=== PATIENT | male | born 1945 | race Caucasian/White ===

== ENCOUNTER 2018-11-02 10:52 | Emergency (ER) | payer BC, MEDICARE ==
--- NOTE | 2018-11-02 11:04 | ED ---
Respiratory - HPI Summary HPI Summary: This patient is a 73 year old M brought in by ambulance from to ED with a chief complaint of upper respiratory sx since 6 days ago. The patient was sent here from to r/o STEMI because of ST changes seen on an EKG. Dr. Seay saw the patient in the ER at 1054. The patient rates the pain 0/10 in severity. Symptoms aggravated by nothing. Symptoms alleviated by nothing. Patient reports rhinorrhea, productive cough with light jaramillo sputum, SOB, non-radiating heart burn that worsens after PO and after having ETOH, unsteady gait, and intermittent diarrhea (unchanged from baseline). Patient denies CP, edema, N/V, and any numbness. PMHx of COPD. Patient has not had his flu shot this year. He has been taking 60mg of prednisone and 1500mg a day of amoxicillin for the last 6 days. He denies long distance travel in the last 3 months. - History of Current Complaint Stated Complaint: CHEST PAIN PER EMS Hx Obtained From: Patient, EMS Onset/Duration: Sudden Onset, Lasting Days - since 6 days ago, Still Present Timing: Constant Current Severity: None Pain Intensity: 0 Character: Cough (Productive) Sputum Color: Jaramillo - light jaramillo Aggravating Factor(s): Nothing Alleviating Factor(s): Nothing Associated Signs and Symptoms: SOB - Allergy/Home Medications Allergies/Adverse Reactions: Allergies Allergy/AdvReac Type Severity Reaction Status Date / Time No Known Allergies Allergy Verified 11/02/18 09:12 PMH/Surg Hx/FS Hx/Imm Hx Endocrine/Hematology History: Denies: Hx Diabetes, Hx Thyroid Disease Cardiovascular History: Reports: Hx Hypertension Respiratory History: Reports: Hx Chronic Obstructive Pulmonary Disease (COPD) Denies: Hx Asthma GI History: Denies: Hx Ulcer - Cancer History Cancer Type, Location and Year: prostate - Surgical History Surgery Procedure, Year, and Place: L Hand x3. R Hand x2. brain coil [facility] Infectious Disease History: No Infectious Disease History: Denies: Hx Hepatitis, Hx Human Immunodeficiency Virus (HIV), Traveled Outside the in Last 30 Days - Family History Known Family History: Positive: Respiratory Disease - Social History Alcohol Use: Occasionally Alcohol Amount: 1 beer, 1 shot, 2 glasses of wine Substance Use Type: Reports: None Hx Tobacco Use: Yes Smoking Status (MU): Light Every Day Tobacco Smoker Amount Used/How Often: 1/2 PPD Review of Systems Positive: Other - rhinorrhea Negative: Chest Pain Positive: Shortness Of Breath, Cough - productive with light jaramillo phlegm Positive: Diarrhea - intermittent diarrhea (unchanged from baseline), Other - non-radiating heart burn that worsens after PO . Negative: Vomiting, Nausea Positive: Other - unsteady gait. Negative: Edema Negative: Numbness All Other Systems Reviewed And Are Negative: Yes Physical Exam - Summary Physical Exam Summary: Constitutional: Well-developed, Well-nourished, Alert. (-) Distressed Skin: Warm, Dry HENT: Normocephalic; Atraumatic Eyes: Conjunctiva normal Neck: Musculoskeletal ROM normal neck. (-) JVD, (-) Stridor, (-) Tracheal deviation Cardio: Rhythm regular, rate normal, Heart sounds normal; Intact distal pulses; The pedal pulses are 2+ and symmetric. Radial pulses are 2+ and symmetric. (-) Murmur Pulmonary/Chest wall: Effort normal. (-) Respiratory distress, (-) Wheezes, (-) Rales, Diminished breath sounds in the posterior lung leach bilaterally Abd: Soft, (-) tenderness, (-) Distension, (-) Guarding, (-) Rebound Musculoskeletal: (-) Edema Lymph: (-) Cervical adenopathy Neuro: Alert, Oriented x3 Psych: Mood and affect Normal Triage Information Reviewed: Yes Vital Signs On Initial Exam: Initial Vitals Temp Pulse Resp BP Pulse Ox 97.6 F 76 20 136/82 98 11/02/18 10:54 11/02/18 10:54 11/02/18 10:54 11/02/18 10:54 11/02/18 10:54 Vital Signs Reviewed: Yes Diagnostics - Vital Signs Vital Signs Temp Pulse Resp BP Pulse Ox 11/02/18 10:54 97.6 F 76 20 136/82 98 - Laboratory Result Diagrams: 11/02/18 11:14 11/02/18 11:14 Lab Statement: Any lab studies that have been ordered have been reviewed, and results considered in the medical decision making process. - CT CTA chest/thorax CT Interpretation Completed By: Radiologist Summary of CT Findings: No definite pulmonary embolus is noted. No evidence of aortic dissection. Right upper lobe consolidation. Left lower lobe calcified granuloma. Dr. Alvarado has reviewed this radiology report. - EKG 1138 Cardiac Rate: Bradycardia - 57 BPM EKG Rhythm: Sinus Bradycardia Summary of EKG Findings: Sinus bradycardia at 57 bpm, normal HI, normal QRS, normal QTc, normal axis, normal ST, normal T-waves, normal EKG. 1056 Cardiac Rate: NL - 72 BPM EKG Rhythm: Sinus Rhythm Summary of EKG Findings: Normal sinus rhythm at 72 bpm, normal HI, normal QRS, normal QTc, R axis deviation, RBBB. Re-Evaluation - Re-Evaluation First Eval Re-Evaluation Time: 12:34 Change: Unchanged Second Eval Re-Evaluation Time: 14:38 Comment: Discussed results with the patient. Third Eval Re-Evaluation Time: 16:11 Change: Improved Comment: Patient ambulated in the ED and his HR increased. The patient is feeling better currently and he was feeling alright while walking. He reports that he was not feeling light-headed while walking. Fourth Eval Re-Evaluation Time: 17:08 Change: Improved Comment: I discussed with him that this heart rate is rapid, but he is declining admission at this time. He states he is feeling better now than he has all week. His O2 sat is good. Given maintence of O2 sat, he will be discharged home. Disposition - Course Assessment/Plan: This patient is a 73 year old M brought in by ambulance from to ED with a chief complaint of upper respiratory sx since 6 days ago. The patient was sent here from to r/o STEMI because of ST changes seen on an EKG. On exam, the patient has diminished breath sounds in the posterior lung leach bilaterally. EKG reveals normal sinus rhythm at 72 bpm, normal HI, normal QRS, normal QTc, R axis deviation, RBBB. CTA chest/thorax reveals no definite pulmonary embolus is noted. No evidence of aortic dissection. Right upper lobe consolidation. Left lower lobe calcified granuloma. In the ED course , the patient was given a duoneb, rocephin, and zithromax. ood work shows no significant abnormalities except for slightly elevated WBC, MCH, MCH, absolute neuts, absolute monos, BUN/creatinine, glucose, and calcium, and decreased absolute lymphs, absolute monos, sodium, and chloride. First troponin is 0.02, and second troponin is 0.03. Influenza A and B tests are negative. Upon re-eval at 1708, the patient states he was feeling worse throughout the week. At this time, his O2 sat is okay. I discussed with him his rapid heartbeat, but he declines admission. Given maintained O2 sat and improvement of symptoms since onset, he will be discharged home with a prescription for Avelox. The diagnosis is community acquired pneumonia. He understands the risk of declining admission. He will return to the ED for any new or worsening symptoms. - Diagnoses Provider Diagnoses: Community acquired pneumonia Discharge - Sign-Out/Discharge Documenting (check all that apply): Patient Departure - Patient will be discharged home. Patient Received Moderate/Deep Sedation with Procedure: No - Discharge Plan Condition: Stable Disposition: HOME Prescriptions: Moxifloxacin HCl [Avelox] 400 mg PO DAILY 9 Days #9 tablet Moxifloxacin HCl [Avelox] 400 mg PO DAILY #9 tablet Patient Education Materials: Community Acquired Pneumonia (ED) Print Language: AZERI Referrals: Ancelmo Slaughter PA [Primary Care Provider] - - Billing Disposition and Condition Condition: STABLE Disposition: Home - Attestation Statements Document Initiated by Bryannaibe: Yes Documenting Scribe: Chandler Avendaño Provider For Whom Skye is Documenting (Include Credential): Dr. Pinky Mckeon MD Scribe Attestation: I, Chandler Avendaño, scribed for Dr. Pinky Mckeon MD on 11/02/18 at 2118. Scribe Documentation Reviewed: Yes Provider Attestation: The documentation as recorded by the Chandler vyas accurately reflects the service I personally performed and the decisions made by me, Dr. Pinky Mckeon MD Status of Scribe Document: Viewed
[2018-11-02 11:32] LABS: Hematocrit 46 % (36-46); Hemoglobin 15.2 g/dL (14.0-18.0); Mean Corpuscular HGB Conc 33 g/dL (31-36); Mean Corpuscular Hemoglobin 33 pg (27-31); Mean Corpuscular Volume 99 fL (80-94); Mean Platelet Volume 8.9 fL (7.4-10.4); Platelet Count 220 10^3/uL (150-450); Red Cell Distribution Width 13 % (10.5-15); White Blood Count 13.7 10^3/uL (3.5-10.8)
[2018-11-02 11:54] LABS: Albumin 3.6 g/dL (3.2-5.2); Albumin/Globulin Ratio 1.1 (1-3); BUN/Creatinine Ratio 21.9 (8-20); Calcium 11.6 mg/dL (8.6-10.3); EGFR African American 92.4 (>60); EGFR Non-African American 76.4 (>60); Globulin 3.2 g/dL (2-4); Potassium 4.6 mmol/L (3.5-5.0); Total Bilirubin 0.5 mg/dL (0.2-1.0); Total Protein 6.8 g/dL (6.4-8.9); Troponin I 0.02 ng/mL (<0.04)
[2018-11-02 12:11] LABS: Influenza A Molecular NEGATIVE (Negative); Influenza B Molecular NEGATIVE (Negative)
[2018-11-02 12:33] LABS: ABS Basophils 0 10^3/ul (0-0.2); ABS Eosinophils 0 10^3/ul (0-0.6); ABS Lymphocytes 0.6 10^3/ul (1.0-4.8); ABS Monocytes 2.2 10^3/ul (0-0.8); ABS Neutrophils 10.8 10^3/ul (1.5-7.7); ABS Nucleated RBC 0 10^3/ul; Eosinophil % 0.2 %; Lymphocyte % 4.3 %; Nucleated Red Blood Cells % 0.3
[2018-11-02] MEDS ORDERED: Albuterol/Ipratropium NEB.SOL* Albuterol 2.5 MG/Ipratropium 0.5 MG 3 ML INH ONE (12:38)
[2018-11-02] MEDS ORDERED: Iohexol 350* (CONTRAST) 500 ML MDV IV ONE (12:48)
[2018-11-02] MEDS ORDERED: ED Azithromycn 500 mg/250 ml 500 MG/250 ML PREMIX.SET IVPB ONE (14:14)
[2018-11-02] MEDS ORDERED: cefTRIAXone(*) 1 GM in NS 0.9% 50 ML* 50 ML IVPB ONE (14:14)
[2018-11-02 17:44] VITALS: BP 106/74
== END 2018-11-02 17:43 | disposition home or self-care (01) ==
LOC: ED 10:52
DX: J18.9 Pneumonia, unspecified organism (principal); R19.7 Diarrhea, unspecified; R26.81 Unsteadiness on feet; R00.1 Bradycardia, unspecified; I45.10 Unspecified right bundle-branch block; I10 Essential (primary) hypertension; J44.9 Chronic obstructive pulmonary disease, unspecified; F17.200 Nicotine dependence, unspecified, uncomplicated
CPT/HCPCS: 36415; 71275; 80053; 83605; 83690; 83735; 83880; 84484; 85025; 93005; 96365; 99284; A9270-GY; J0696; Q9967

== ENCOUNTER 2018-11-10 09:19 | Emergency (ER) | payer MEDICARE ==
[2018-11-10] MEDS ORDERED: methylPREDNISolone 125 MG* 2 ML VIAL IV ONE (09:56)
[2018-11-10] MEDS ORDERED: Benzonatate CAP* 100 MG PO ONE (09:56)
[2018-11-10] MEDS ORDERED: Albuterol/Ipratropium NEB.SOL* Albuterol 2.5 MG/Ipratropium 0.5 MG 3 ML INH ONE ×2 (09:56→12:04)
--- NOTE | 2018-11-10 09:57 | ED ---
Shortness of Breath - HPI Summary HPI Summary: A 73 y/o male presents to [facility] with a chief complaint of shortness of breath since 11/02/18. He reports that he was admitted to [facility] with a diagnosis of pneumonia and left on 11/02/18. He started abx the next day. He reports that he takes two inhalers, albuterol, and has used prednisone and amoxicillin before he was admitted because he was sick for about a week, but his symptoms are worsening. He reports that last night his O2 Sat was in the 70s and claims that his O2 Sat at its highest is around 92. He reports that he has a nebulizer at home but hasnt used it. Dr. Wood is his PCP. At triage he rated his pain as a 0/10 in severity. Movement aggravates his pain, claiming that he gets a cough. He reports that he has SOB all the time. He also reports that he had a brain aneurysm 2 years ago. Vital signs while in room HR: 61 bpm, O2 Sat: 93, BP: 136/82 - History of Current Complaint Chief Complaint: EDShortnessOfBreath Time Seen by Provider: 11/10/18 09:27 Hx Obtained From: Patient Onset/Duration: Sudden Onset Timing: Constant Current Severity: Mild Dyspnea At: Rest Aggrevating Factors: Movement Alleviating Factors: Nothing Associated Signs & Symptoms: Negative - fever - Allergy/Home Medications Allergies/Adverse Reactions: Allergies Allergy/AdvReac Type Severity Reaction Status Date / Time No Known Allergies Allergy Verified 11/10/18 09:24 Home Medications: Home Medications Budesonide/Formote 160/4.5(NF) [Symbicort 160/4.5 (NF)] 1 puff INH BID 11/10/18 [History Confirmed 11/10/18] Finasteride TAB* [Proscar TAB*] 5 mg PO DAILY 11/10/18 [History Confirmed ] PMH/Surg Hx/FS Hx/Imm Hx Endocrine/Hematology History: Denies: Hx Diabetes, Hx Thyroid Disease Cardiovascular History: Reports: Hx Hypertension Respiratory History: Reports: Hx Chronic Obstructive Pulmonary Disease (COPD) Denies: Hx Asthma GI History: Denies: Hx Ulcer - Cancer History Cancer Type, Location and Year: prostate - Surgical History Surgery Procedure, Year, and Place: L Hand x3. R Hand x2. brain coil [facility] Infectious Disease History: No Infectious Disease History: Denies: Hx Hepatitis, Hx Human Immunodeficiency Virus (HIV), Traveled Outside the [place] in Last 30 Days - Family History Known Family History: Positive: Respiratory Disease - Social History Alcohol Use: Daily Alcohol Amount: 1 beer, 1 shot, 2 glasses of wine Substance Use Type: Reports: None Hx Tobacco Use: Yes Smoking Status (MU): Former Smoker Amount Used/How Often: 1/2 PPD Review of Systems Negative: Fever Positive: Shortness Of Breath, Cough - upon movement All Other Systems Reviewed And Are Negative: Yes Physical Exam - Summary Physical Exam Summary: Appearance: The patient is well-nourished in no acute distress and in no acute pain. Skin: The skin is warm and dry and skin color reflects adequate perfusion. HEENT: The head is normocephalic and atraumatic. The pupils are equal and reactive. The conjunctivae are clear and without drainage. Nares are patent and without drainage. Mouth reveals moist mucous membranes and the throat is without erythema and exudate. The external ears are intact. The ear canals are patent and without drainage. The tympanic membranes are intact. Neck: The neck is supple with full range of motion and non-tender. There are no carotid bruits. There is no neck vein distension. Respiratory: Chest is tight. Expiratory wheezes. Cardiovascular: Heart is regular rate and rhythm. There is no murmur or rub auscultated. There is no peripheral edema and pulses are symmetrical and equal. Abdomen: The abdomen is soft and non-tender. There are normal bowel sounds heard in all four quadrants and there is no organomegaly palpated. Musculoskeletal: There is no back tenderness noted. Extremities are non-tender with full range of motion. There is good capillary refill. There is no peripheral edema or calf tenderness elicited. Neurological: Patient is alert and oriented to person, place and time. The patient has symmetrical motor strength in all four extremities. Cranial nerves are grossly intact. Deep tendon reflexes are symmetrical and equal in all four extremities. Psychiatric: The patient has an appropriate affect and does not exhibit any anxiety or depression. Triage Information Reviewed: Yes Vital Signs On Initial Exam: Initial Vitals Temp Pulse Resp BP Pulse Ox 97.9 F 70 24 133/89 94 11/10/18 09:20 11/10/18 09:20 11/10/18 09:20 11/10/18 09:20 11/10/18 09:20 Vital Signs Reviewed: Yes Diagnostics - Vital Signs Vital Signs Temp Pulse Resp BP Pulse Ox 11/10/18 09:33 61 93 11/10/18 09:32 61 136/82 89 11/10/18 09:20 97.9 F 70 24 133/89 94 - Laboratory Result Diagrams: 11/10/18 10:33 11/10/18 10:33 Lab Statement: Any lab studies that have been ordered have been reviewed, and results considered in the medical decision making process. - Radiology CXR Radiology Interpretation Completed By: Radiologist Summary of Radiographic Findings: RIGHT UPPER LOBE INFILTRATE, UNCHANGED. ED physician has reviewed this imaging report. - EKG 10:02 Cardiac Rate: NL - 59 bpm EKG Rhythm: Sinus Rhythm Summary of EKG Findings: Normal sinus rhythm at 59 bpm, RBBB Re-Evaluation - Re-Evaluation First Eval Re-Evaluation Time: 11:44 Change: Unchanged Comment: O2 Sat 83 when walking Second Eval Re-Evaluation Time: 12:32 Change: Unchanged Comment: Patient requesting discharge instead of admission Course/Dx - Course Course Of Treatment: Mr. Ibanez resents to the emergency department complaining of continued shortness of breath ever since being hospitalized for pneumonia a couple weeks ago. He was discharged on Levaquin and has since finished that. He has a couple of inhalers at home as well as a nebulizer machine with nebulizer solution that's probably a couple years old. He has not used his nebulizer. He has been on home oxygen in the past he states but no longer has that. He is concerned because he has a personal pulse ox detector that has been reading low and he is generally feeling short of breath. Exertion worsens it and that he hasn't been sleeping well. He was nontoxic in appearance here but his pulse ox was marginal at rest in the [place] [facility] on room air. He was kept on oxygen on the monitor while he received some nebulizers and some Solu- Medrol. He felt improved and I tried to ambulate him but his pulse ox dropped to 83% and he felt very short of breath. He was tight with some wheezing but was not using accessory muscles and had no retractions. I recommended admission to the hospital on the steroids have a chance to kick and we can arrange oxygen for him at home and update his nebulizer machine. He is adamant about not staying in the hospital. He states that he's been feeling this way for 2 weeks and he can feel this way little longer that what he really wants is to have home oxygen. I think that's a good idea but encouraged him to stay as I think he'll feel better a lot better tomorrow after the steroids kick in. He understands my concerns and indicates that he will return if he feels worse and is complaining [facility]. - Diagnoses Provider Diagnoses: COPD exacerbation - Physician Notifications Discussed Care of Patient With: Meera Cheatham Time Discussed With Above Provider: 12:09 Instructed by Provider To: Other - Jay Griffin will see the patient in the ED Discharge - Sign-Out/Discharge Documenting (check all that apply): Patient Departure - DC Patient Received Moderate/Deep Sedation with Procedure: No - Discharge Plan Condition: Stable Disposition: HOME Prescriptions: Benzonatate CAP* [Tessalon 100 MG CAP*] 100 mg PO TID #20 cap methylPREDNISolone [Medrol Dosepak 4 MG*] 4 mg PO .SEE NOE INSTRUCTION #1 tab Patient Education Materials: COPD (Chronic Obstructive Pulmonary Disease) (ED) Referrals: Ancelmo Slaughter PA [Physician [employer]] - (this week) Additional Instructions: Follow up with your PCP this week. Return to the ED if you experience any new or worsening symptoms. - Billing Disposition and Condition Condition: STABLE Disposition: Home - Attestation Statements Document Initiated by Skye: Yes Documenting Scribe: Josiah Fernandez Provider For Whom Skye is Documenting (Include Credential): Asad Amaya MD Scribe Attestation: I, Josiah Fernandez, scribed for Asad Amaya MD on 11/10/18 at 1323. Scribe Documentation Reviewed: Yes Provider Attestation: The documentation as recorded by the Josiah vyas accurately reflects the service I personally performed and the decisions made by me, Asad Amaya MD Status of Scribe Document: Viewed
[2018-11-10 10:43] LABS: Hematocrit 46 % (36-46); Hemoglobin 15.8 g/dL (14.0-18.0); Mean Corpuscular HGB Conc 34 g/dL (31-36); Mean Corpuscular Hemoglobin 34 pg (27-31); Mean Corpuscular Volume 98 fL (80-94); Mean Platelet Volume 8.2 fL (7.4-10.4); Platelet Count 184 10^3/uL (150-450); Red Blood Count 4.69 10^6 /uL (4.18-5.48); Red Cell Distribution Width 14 % (10.5-15); White Blood Count 6.3 10^3/uL (3.5-10.8)
[2018-11-10 11:03] LABS: Troponin I 0.01 ng/mL (<0.04)
[2018-11-10 11:10] LABS: Albumin 3.7 g/dL (3.2-5.2); Albumin/Globulin Ratio 1.1 (1-3); BUN/Creatinine Ratio 17.9 (8-20); C Reactive Protein 6.57 mg/L (<8.01); Calcium 9.6 mg/dL (8.6-10.3); EGFR African American 107.8 (>60); EGFR Non-African American 89.1 (>60); Globulin 3.4 g/dL (2-4); Potassium 4.5 mmol/L (3.5-5.0); Total Bilirubin 0.5 mg/dL (0.2-1.0); Total Protein 7.1 g/dL (6.4-8.9)
[2018-11-10 11:54] LABS: ABS Basophils 0 10^3/ul (0-0.2); ABS Eosinophils 0 10^3/ul (0-0.6); ABS Lymphocytes 0.5 10^3/ul (1.0-4.8); ABS Monocytes 1.3 10^3/ul (0-0.8); ABS Neutrophils 4.4 10^3/ul (1.5-7.7)
[2018-11-10 12:00] LABS: Lymphocytes % 7 %; Monocytes % 19 %; Myelocytes % 1 % (0-1); Neutrophil % 66 %
[2018-11-10 12:01] LABS: Immature Granulocytes 7 % (0-9)
[2018-11-10 12:02] LABS: ABS Neutrophils 4.6 10^3/ul (1.5-7.7)
[2018-11-10 12:03] LABS: ABS Eosinophils 0.1 10^3/ul (0-0.6)
[2018-11-10 13:41] VITALS: BP 126/95
== END 2018-11-10 13:47 | disposition home or self-care (01) ==
LOC: ED 09:19
DX: J44.1 Chronic obstructive pulmonary disease with (acute) exacerbation (principal); I45.10 Unspecified right bundle-branch block; I10 Essential (primary) hypertension; Z85.46 Personal history of malignant neoplasm of prostate; Z86.79 Personal history of other diseases of the circulatory system; Z87.891 Personal history of nicotine dependence
CPT/HCPCS: 36415; 71046; 80053; 83605; 83880; 84484; 85025; 85379; 86140; 87040; 93005; 96374; 99284; A9270-GY; J2930